=== PATIENT | female | born 1955 | race Caucasian/White ===

== ENCOUNTER 2017-12-23 10:08 | Outpatient (CLI) | payer BC | END 2017-12-23 10:09 | disposition home or self-care (01) | LOC: BICMRI 10:08 | PROVIDERS: ATTEND Psychiatry & Neurology Neurology | DX: R41.3 Other amnesia (principal); G93.9 Disorder of brain, unspecified | CPT/HCPCS: 70551 ==

== ENCOUNTER 2018-02-21 11:40 | Outpatient (CLI) | payer BC ==
--- NOTE | 2018-02-21 13:13 | RAD ---
CHEST 2 VIEWS: HISTORY: Dyspnea. COMPARISON: 10/13/12. FINDINGS: Cardiac silhouette is unremarkable. Pulmonary vasculature is upper limits of normal. Mild reticulon odular interstitial prominence throughout each lung is similar in appearance to the prior study. Med iastinum is midline with postoperative changes cervical spine. No confluent airspace consolidation, pneumothorax, or pleural fluid are apparent. IMPRESSION: Chronic reticulonodular interstitial prominence is stable. POS: [facility]
== END 2018-02-21 11:41 | disposition home or self-care (01) ==
LOC: RAD 11:40
PROVIDERS: ATTEND Internal Medicine
DX: R06.00 Dyspnea, unspecified (principal); J98.4 Other disorders of lung
CPT/HCPCS: 71046

== ENCOUNTER 2018-06-06 10:27 | Outpatient (CLI) | payer MEDICARE, BC ==
--- NOTE | 2018-06-06 11:03 | RAD ---
PA AND LATERAL VIEWS OF THE CHEST: History: Dyspnea. FINDINGS: Comparison is made with the exam of 02-21-18. The heart size normal. The lungs are well expanded without focal areas of consolidation, pneumothorac es or pleural effusions. Mild chronic changes are stable. Post op changes in the lower cervical spine are again seen. IMPRESSION: Stable exam. No acute process. POS: [facility]
== END 2018-06-06 10:28 | disposition home or self-care (01) ==
LOC: RAD 10:27
PROVIDERS: ATTEND Internal Medicine
DX: R06.00 Dyspnea, unspecified (principal)
CPT/HCPCS: 71046

== ENCOUNTER 2019-01-03 08:40 | Outpatient (CLI) | payer MEDICARE, BC ==
--- NOTE | 2019-01-03 10:13 | CT ---
CT ABDOMEN WITHOUT CONTRAST: HISTORY: Left adrenal mass and left renal mass. Followup. COMPARISON: 09/10/2017 FINDINGS: IV contrast was withheld because of a severe allergy. A 0.2 cm calculus is present within a nondilat ed calyx at the inferior pole of each kidney. Each renal collecting system is decompressed. Lack of contrast decreases sensitivity of exam for other abnormalities. Tiny subpleural nodules at t he lung bases are stable. The liver is diffusely hypodense. The gallbladder is surgically absent. The heterogeneous, oval, well circumscribed mass of the left adrenal gland is now 2.9 cm in length x 2.3 cm in width x 3 cm in depth, where it was previously 2.7 x 1.9 x 2.8 cm. Hounsfield unit measure ments are slightly greater than 20, on average. The oval, low density lesion at the superior pole le ft kidney is barely visualized on noncontrast CT and measures 1.6 cm, smaller than when it was better seen on the contrast enhanced exam. No new renal or adrenal masses are apparent. There is calcific ation in the arterial structures. IMPRESSION: 1. Interval enlargement of the slightly heterogeneous left adrenal mass, now up to 3 cm. 2. Left renal cyst is stable. Tiny, nonobstructing bilateral renal calculi. 3. Hepatosteatosis. 4. Atherosclerosis. POS: [facility]
== END 2019-01-03 08:41 | disposition home or self-care (01) ==
LOC: CT 08:40
PROVIDERS: ATTEND Urology
DX: N20.0 Calculus of kidney (principal); E27.9 Disorder of adrenal gland, unspecified; N28.1 Cyst of kidney, acquired; K76.0 Fatty (change of) liver, not elsewhere classified; I70.0 Atherosclerosis of aorta
CPT/HCPCS: 74150

== ENCOUNTER 2019-05-03 10:25 | Outpatient (CLI) | payer MEDICARE, BC ==
--- NOTE | 2019-05-03 12:50 | CT ---
CT Abdomen WO Con History: Adrenal gland disorder Comparison: CT abdomen January 03, 2019 Findings: Lung bases are clear. No pericardial effusion. Diffuse headache steatosis. Unchanged 2.9 x 2 cm left adrenal gland mass. Right renal vein is without mass. No hydronephrosis. Punctate calculus inferior right renal papilla. No acute osseous abnormality. No suspicious osteolytic or osteoblastic lesions. Severe facet arthropa thy L3-S1. No dilated loops of large or small bowel the abdomen. Prior cholecystectomy. Impression: Similar left adrenal mass since 2004 suggesting benign entity.
== END 2019-05-03 10:26 | disposition home or self-care (01) ==
LOC: BICCT 10:25
PROVIDERS: ATTEND Urology
DX: E27.8 Other specified disorders of adrenal gland (principal)
CPT/HCPCS: 74150

== ENCOUNTER 2019-05-10 08:15 | Outpatient (CLI) | payer MEDICARE, BC ==
--- NOTE | 2019-05-10 13:27 | NM ---
QUANTITATIVE GASTRIC EMPTYING STUDY PROCEDURE: Following oral administration of radiolabeled food, labeled with technetium 99m sulfur co lloid, projection images of the abdomen were obtained at 15-minute intervals out to 60 minutes. When possible, both anterior and posterior projection images were obtained to allow the calculation o f the geometric mean activity. Radiopharmaceutical Dose Tc 99m sulfur colloid: 2.1 mCi COMPARISON: 05/15/2014 CLINICAL HISTORY: Evaluate for gastric emptying. Diabetic Gastroparesis and reflux FINDINGS: 61% of tracer was cleared at 64 minutes. T ? was 53 minutes. 84% of tracer was cleared at 245 minutes . No significant tracer activity in the distal esophagus was observed. IMPRESSION: Gastric emptying half-time of 53 minutes Please note, that there are no normal values established for ages below 3 years (in adults 50% or mor e gastric emptying of a solid meal at 90 minutes is considered normal).
== END 2019-05-10 08:16 | disposition home or self-care (01) ==
LOC: NM 08:15
PROVIDERS: ATTEND Internal Medicine Gastroenterology
DX: K31.84 Gastroparesis (principal)
CPT/HCPCS: 78264; A9541

== ENCOUNTER → 2022-07-02 | Day surgery (SDC) | payer MEDICARE, BC | END | disposition home or self-care (01) | LOC: SDC 07:13 | PROVIDERS: ATTEND Internal Medicine Gastroenterology | DX: K31.84 Gastroparesis (principal); K21.9 Gastro-esophageal reflux disease without esophagitis; R05.9 Cough, unspecified; Z88.2 Allergy status to sulfonamides; Z88.5 Allergy status to narcotic agent; Z88.8 Allergy status to other drugs, medicaments and biological substances; Z98.84 Bariatric surgery status | CPT/HCPCS: 91034 ==

== ENCOUNTER 2022-12-31 13:02 | Outpatient (CLI) | payer MEDICARE, BC | END 2022-12-31 13:03 | disposition home or self-care (01) | LOC: BICRAD 13:02 | PROVIDERS: ATTEND Family Medicine | DX: J45.41 Moderate persistent asthma with (acute) exacerbation (principal); J18.9 Pneumonia, unspecified organism | CPT/HCPCS: 71046 ==

== ENCOUNTER 2023-02-18 12:45 | Outpatient (CLI) | payer MEDICARE, BC | END 2023-02-18 12:46 | disposition home or self-care (01) | LOC: BICMAMMO 12:45 | PROVIDERS: ATTEND Family Medicine | DX: Z12.31 Encounter for screening mammogram for malignant neoplasm of breast (principal); M85.80 Other specified disorders of bone density and structure, unspecified site; Z13.820 Encounter for screening for osteoporosis | CPT/HCPCS: 77063; 77067; 77080 ==

== ENCOUNTER 2023-03-11 08:20 | Outpatient (CLI) | payer MEDICARE, BC | END 2023-03-11 08:21 | disposition home or self-care (01) | LOC: BICULT 08:20 | PROVIDERS: ATTEND Family Medicine | DX: R13.10 Dysphagia, unspecified (principal); E04.1 Nontoxic single thyroid nodule | CPT/HCPCS: 76536 ==

== ENCOUNTER 2023-06-30 14:58 | Outpatient (CLI) | payer MEDICARE, BC | END 2023-06-30 14:59 | disposition home or self-care (01) | LOC: BICCT 14:58 | PROVIDERS: ATTEND Psychiatry & Neurology Neurology | DX: M48.02 Spinal stenosis, cervical region (principal) | CPT/HCPCS: 72125 ==

== ENCOUNTER 2024-04-26 14:48 | Outpatient (CLI) | payer MEDICARE, BC | END 2024-04-26 14:49 | disposition home or self-care (01) | LOC: BICMAMMO 14:48 | PROVIDERS: ATTEND Family Medicine | DX: Z12.31 Encounter for screening mammogram for malignant neoplasm of breast (principal) | CPT/HCPCS: 77063; 77067 ==

== ENCOUNTER 2024-05-25 14:17 | Outpatient (CLI) | payer MEDICARE, BC | END 2024-05-25 14:18 | disposition home or self-care (01) | LOC: BICRAD 14:17 | PROVIDERS: ATTEND Physician Assistant Surgical | DX: M54.2 Cervicalgia (principal); Z98.1 Arthrodesis status | CPT/HCPCS: 72050 ==

== ENCOUNTER 2024-10-30 13:52 | Outpatient (CLI) | payer MEDICARE, BC | END 2024-10-30 13:53 | disposition home or self-care (01) | LOC: BICRAD 13:52 | PROVIDERS: ATTEND Family Medicine | DX: J18.9 Pneumonia, unspecified organism (principal) | CPT/HCPCS: 71046 ==

== ENCOUNTER 2025-06-15 10:04 | Outpatient (CLI) | payer MEDICARE, BC | END 2025-06-15 10:05 | disposition home or self-care (01) | LOC: BICMAMMO 10:04 | PROVIDERS: ATTEND Family Medicine | DX: Z12.31 Encounter for screening mammogram for malignant neoplasm of breast (principal) | CPT/HCPCS: 77063; 77067 ==

== ENCOUNTER 2025-07-09 13:19 | Outpatient (CLI) | payer MEDICARE, BC | END 2025-07-09 13:20 | disposition home or self-care (01) | LOC: BICMAMMO 13:19 | PROVIDERS: ATTEND Family Medicine | DX: M85.89 Other specified disorders of bone density and structure, multiple sites (principal) | CPT/HCPCS: 77080 ==